=== PATIENT | female | born 1990 | race Caucasian/White ===

== ENCOUNTER 2018-03-25 08:46 | Inpatient (IN) ==
[2018-03-28] MEDS ORDERED: LR 1,000 ML IV PRN (06:05)
[2018-03-28] MEDS ORDERED: CALCIUM CARBONATE Chewable 500mg TABLET PO PRN ×2 (06:05→11:16)
[2018-03-28] MEDS ORDERED: LIDOCAINE 1% (10mg/ml) 2mL INJ PF SDV ID PRN (06:05)
[2018-03-28] MEDS ORDERED: D5LR 1,000 ML IV PRN (06:05)
[2018-03-28] MEDS ORDERED: MAG-AL + SIM ORAL LIQUID 30ml PO PRN ×2 (06:05→11:16)
[2018-03-28] MEDS ORDERED: METHYLERGONOVINE 0.2 MG/ML INJECTION IM PRN (06:05)
[2018-03-28] MEDS ORDERED: OXYTOCIN DRIP 30 UNIT/500 ML ML IV PRN ×2 (06:05→11:16)
[2018-03-28] MEDS ORDERED: ACETAMINOPHEN 500 MG TABLET PO PRN ×2 (06:05→11:16)
[2018-03-28] MEDS ORDERED: CARBOPROST 250 MCG/ML INJECTION IM PRN (06:05)
[2018-03-28 06:11] VITALS: BMI 27.9
[2018-03-28 06:14] VITALS: O2SAT 98
[2018-03-28] MEDS ORDERED: ONDANSETRON 4 MG/2 ML INJECTION IVP PRN (07:54)
[2018-03-28] MEDS ORDERED: NALOXONE 0.4 MG/ML INJECTION IVP PRN ×2 (07:54→11:16)
[2018-03-28] MEDS ORDERED: ROPIVACAINE 1% 10MG/ML INJ 200 MG, SUFentanil 50 MCG in NS 100 ML EPI PRN (07:54)
[2018-03-28] MEDS ORDERED: DiphenhydrAMINE 50 MG/ML INJECTION IVP PRN (07:54)
--- NOTE | 2018-03-28 07:54 | Anesthesia Preoperative Report ---
Anesthesia Epidural/Spinal Rec - Date and Time Date: 03/28/18 Procedure: Labor Epidural Plan: Epidural - Vital Signs Vital Signs: Temperature 97.7 F 03/28/18 06:11 Pulse Rate 57 L 03/28/18 06:11 Respiratory Rate 18 03/28/18 06:11 Blood Pressure 103/67 03/28/18 06:11 Pulse Oximetry 98 03/28/18 06:11 /Para: P:1 - Medictaions & Allergies Inpatient Medications: Current Medications Acetaminophen (Tylenol) 500 - 1,000 mg PO Q4H PRN PRN Reason: Pain Al Hydroxide/Mg Hydroxide (Maalox Plus) 30 ml PO Q3H PRN PRN Reason: Indigestion Calcium Carbonate (Tums) 500 - 1,000 mg PO Q2H PRN PRN Reason: Indigestion Carboprost Tromethamine (Hemabate) 250 mcg IM O PRN PRN Reason: .Downtime Dextrose/Lactated Ringer's (Dextrose 5%-Lactated Ringers) 1,000 mls @ 125 mls/ hr IV .Q8H PRN PRN Reason: Labor Lactated Ringer's (Lactated Ringers) 1,000 mls @ 999 mls/hr IV .Q1H1M PRN Oxytocin (Pitocin Drip) 30 unit in 500 mls @ 2 mls/hr IV .Q24H PRN; Protocol PRN Reason: Induction/Augmentation Lidocaine HCl (Xylocaine-Mpf 1% Vial) 0.2 mg ID O PRN PRN Reason: IV Start Methylergonovine Maleate (Methergine) 0.2 mg IM O PRN Misoprostol (Cytotec) 800 mcg OH ONCE PRN Allergies/Adverse Reactions: Allergies Allergy/AdvReac Type Severity Reaction Status Date / Time NKDA Allergy Unknown Uncoded 07/14/16 13:01 - Home Medications Home Medications: Home Medications Medication Instructions Recorded Confirmed Type Vit No.130/Iron/Folic 1 tab PO DAILY #0 tab 07/14/16 02/28/18 History [ Tablet] - Medical History Respiratory: DENIES: Asthma, Bronchitis, Chronic Obstructive Pulmonary Disease (COPD), Dyspnea, Orthopnea, Pulmonary Embolism, Pneumonia, Upper Respiratory Infection, Pulmonary Edema, Sleep Apnea, Tuberculosis, Other Cardiovascular: DENIES: Abnormal EKG, Angina, Arrhythmia, Congestive Heart Failure, Coronary Artery Disease, Heart Murmur, Hypertension, Hypotension, High Cholesterol, Myocardial Infarction, Rheumatic Fever, Valvular Heart Disease, Other Gastrointestional: Reports: Gastroesophageal Reflux Disease (with ) Neuro/Musculoskeletal: Denies: Back Problems, Cerebrovascular Accident, Depression, Headaches, Loss of Consciousness, Muscle Weakness, Neuromuscular Disorder, Paralysis, Paresthesia, Syncope, Seizures, Other Renal/Endocrine: Reports: Thyroid Disease (hyper- no tx/no meds) Other History: Reports: Now DENIES: Anesthesia Reactions - Surgical History Reproductive Surgery/Treatment: DENIES: Section Anesthesia Reactions: None Hx Family Anesthesia Reaction: No History of Motion Sickness: No - Social History Smoking Status: Never smoker - Pertinent Findings Lab Data: CBC and BMP 03/28/18 03:30 - Airway Assessment Mallampati Score: II TMD: 3 Fingerbreadths Neck Extension: good Overall Assessment: may be difficult intubation - ASA ASA Score: 2 - Discussion Discussion: Discussed risks/options/alternatives of anesthesia and questions answered. Patient consents. Nursing pain assessment noted. Anesthesia Discussion: spouse Attestation Statement: Prior to the delivery of any anesthetic medication, I examined the patient, developed the plan, obtained the patient's consent and discussed the risk and benefits of the procedure with the patient/guardian.
[2018-03-28] MEDS ORDERED: LIDOCAINE 2% (100mg/5mL) 5ml PF SDV ONE (08:39)
[2018-03-28] MEDS ORDERED: CLINDAMYCIN PB 900 MG/50 ML BAG IV SCH (10:30)
[2018-03-28] MEDS ORDERED: CEFAZOLIN PREMIX (MC ONLY) 2 GM/50 ML BAG IV ONE ×2 (10:49→18:10)
[2018-03-28] MEDS: CEFAZOLIN 2 G in NS 100 ML IV SCH ×2 (10:51→19:09)
[2018-03-28] MEDS ORDERED: HYDROCORTISONE 2.5% CREAM 30gm RECTALLY PRN (11:16)
[2018-03-28] MEDS ORDERED: DiphenhydrAMINE 25 MG CAPSULE PO PRN (11:16)
[2018-03-28] MEDS ORDERED: SALINE FLUSH 10ml SYRINGE IV PRN (11:16)
[2018-03-28] MEDS ORDERED: OXYTOCIN DRIP 30 UNIT/500 ML ML IV SCH (11:16)
[2018-03-28] MEDS ORDERED: RHOPHYLAC - PHARMACY CONSULT MC ONE ×2 (11:16)
[2018-03-28] MEDS ORDERED: IBUPROFEN 800 MG TABLET PO PRN (11:16)
[2018-03-28] MEDS ORDERED: HYDROCODONE/APAP 5mg/325mg TABLET PO PRN (11:16)
--- NOTE | 2018-03-28 15:48 | Labor and Delivery Note ---
DATE OF DELIVERY 03/28/2018 NARRATIVE The patient is a 28-year-old G2, P1 who presented to the hospital at 40 weeks 2 days estimated gestational age for Pitocin induction secondary to post dates. She was 2 cm dilated on arrival. Pitocin was started and the patient progressed quickly into labor. She was given an epidural at which time she was having difficulty getting comfortable. The nurse did check her and found her to be 7 cm dilated at which time she also had spontaneous rupture of membranes. I was called to the hospital and on my arrival the patient was completely dilated and was +2 station. Maximum dose of Pitocin was 10 milliunits. The patient was able to effectively push and delivered a 3764 g (8 lb 4 oz) female infant, name Giovana Petersen. Baby was bulb suctioned after delivery and placed [id number] with mother after which time the cord was doubly clamped and the father of the baby did cut the cord. Attention was turned to the placenta which delivered spontaneously. The cervix, vaginal yip and periurethral and perineal areas were evaluated and she was found to have a very small superficial first-degree posterior midline vaginal tear that was repaired using 0-Monocryl. She did also continue to have uterine bleeding after delivery and one dose of Methergine was given. MEU was performed and there was some evidence of minimal retained membranes and a small amount of retained placenta which appeared to have been removed completely by MEU and use of a large bovine curette. No further tissue was able to be removed after that time. She did have a history of a circumvallate placenta. After delivery Apgars were 8/8/8. The baby did have some respiratory distress and has been taken to the special care unit where she is currently receiving respiratory support but is stable. Mother is doing well at the time of this dictation and bleeding is minimal. MTDD
[2018-03-29] MEDS ORDERED: RHO(D) IMMUNE GLOBULIN 300 MCG/2 ML INJECTION IM ONE (07:45)
[2018-03-29 07:48] VITALS: BP 104/67; PULSE 80; RESP 16; TEMP 97.9
--- NOTE | 2018-03-29 08:08 | Pharmacy Consult ---
Pharmacy Consult-Rhophylac - Laboratory Information 03/28/18 03/28/18 03/28/18 11:03 11:04 11:04 Hgb /Adult Ratio 0.0000 Blood Type O Negative RhIG Candidate? Is a candidate - Consult Information Rh FACTOR CONSULT: Mother Blood Type = O (-) negative Child Blood Type = O (+) Positive Hgb / Adult Ratio = 0.0000 Will give Rho D Immunglobulin 300mcg IM x 1 dose. Thanks, [facility].
[2018-03-29] MEDS ORDERED: PRENATAL VITAMIN TABLET PO SCH (09:00)
[2018-03-29] MEDS ORDERED: DOCUSATE CALCIUM 240 MG CAPSULE PO SCH (09:00)
--- NOTE | 2018-03-29 12:45 | Discharge Summary ---
OB Discharge Summary Date: 03/29/18 Procedures: Procedures Delivery of Products of Conception, External Approach (08/09/16) Drainage of Amniotic Fluid, Therapeutic from Products of Conception, Via Natural or Artificial Opening (08/09/16) Introduction of Other Hormone into Peripheral Vein, Percutaneous Approach (08/09) Repair Perineum Muscle, Open Approach (08/09/16) Repair Perineum Skin, External Approach (08/09/16) Consultations: 03/28/18 11:16 Nurse Consult [CONS] Routine Comment: Instructions: Discharge Instructions: Maternal Child Mother Dismissal Instructions Given (diet, activity, and medications, follow-up) Home Medications: Home Medications Medication Instructions Recorded Confirmed Type Vit No.130/Iron/Folic 1 tab PO DAILY #0 tab 07/14/16 02/28/18 History [ Tablet] Discharge Plan - Discharge Disposition *Condition: Stable Reason For Visit (Visit label in EMR): Labor - Discharge Medications *Discharge Medications: No Action Vit No.130/Iron/Folic [ Tablet] 1 tab PO DAILY #0 tab - Referrals/Follow Up - Patient Handouts
--- NOTE | 2018-03-29 12:51 | OB/GYN Progress Note ---
OB-PP Progress Note - General PPD1 Maternal Group B Strep: Negative Maternal Rh: negative Baby Rh: positive Maternal Rubella Status: Immune - Subjective Date: 03/29/18 Lochia: Minimal Pain: controlled (not taking any pain meds) Voiding: voiding Nausea or Vomiting Present: No - Objective Vital Signs: Last Vital Signs Temp 97.9 F 03/29/18 04:00 Pulse 80 03/29/18 04:00 Resp 16 03/29/18 04:00 BP 104/67 03/29/18 04:00 Pulse Ox 98 03/28/18 07:54 Urine Output: good General: alert and oriented Cardiovascular: regular rate,rhythm Respiratory: non-labored Respiratory Auscultation: clear bilaterally Abdomen: fundus firm, non-tender Extremities: non-tender Edema: none Laboratory: Laboratory Results - last 24 hr 03/28/18 11:03 Hgb /Adult Ratio 0.0000 - Assessment (1) Status: Acute - Plan Plan: routine care, rhophylac, discharge home, continue PNV Expected date of discharge: 03/29/18 Will plan to dismiss to board today. Baby to be transitioned to intermediate care w/in the hour. F/u 6 weeks my office.
== END 2018-03-29 15:35 | disposition home or self-care (01) | DRG 774 ==
LOC: MC 03-28 02:59
PROVIDERS: ADMIT Family Medicine; ATTEND Family Medicine